=== PATIENT | male | born 1955 | race Caucasian/White ===

== ENCOUNTER 2016-11-30 14:23 | Emergency (ER) | payer OTHER ==
[~2016-11-30] VITALS: Ht 167.6 cm; Wt 82.0 kg
[~2016-11-30 14:23] MED LIST: Aspirin PO; CEPH-569 PO; DILT180C69 PO; GLIP5TAB73 PO; LISI2.5T89 PO; METF10002 PO; SIMV40TA5 PO
[2016-11-30] MEDS ORDERED: TAM75 PO (14:52)
[2016-11-30] MEDS ORDERED: ACETAMINOPHEN 325MG TABLET PO ONE (19:15)
[2016-11-30 19:39] LABS: BASOPHILS % 0.5 % (0.0-2.0); EOSINOPHILS % 0.8 % (0.0-5.0); HEMATOCRIT. 41.7 % (42.0-52.0); HEMOGLOBIN. 14.4 g/dL (14.0-18.0); LYMPHOCYTES % 15.2 % (20.0-50.0); MEAN CORPUSCULAR HEMOGLOBIN 30.9 pg (28.0-32.0); MEAN CORPUSCULAR HGB CONC 34.4 g/dL (31.0-37.0); MEAN CORPUSCULAR VOLUME 89.8 fL (80.0-94.0); MEAN PLATELET VOLUME 8.3 fl (7.4-10.4); MONOCYTES % 5.4 % (2.0-8.0); NEUTROPHILS % 78.1 % (40.0-76.0); PLATELET 200 x1000/uL (130-400); RED BLOOD CELL COUNT 4.64 mill/uL (4.7-6.1); RED CELL DISTRIBUTION WIDTH 13.8 % (11.6-14.6); WHITE BLOOD COUNT 15.6 x1000/uL (4.5-11.0)
[2016-11-30 19:44] LABS: CHLORIDE 106 mEq/L (98-107); INDEX HEMOLYSI 1 (1-3); INDEX ICTERIC 1 (1-4); INDEX LIPEMIC 1 (1-3)
[2016-11-30 19:47] LABS: ALBUMIN 3.5 g/dL (3.4-5.0); ANION GAP 15; CALCIUM 8.4 mg/dL (8.5-10.1); CARBON DIOXIDE 25 mEq/L (21-32); UREA NITROGEN BLOOD 11 mg/dL (7-21)
[2016-11-30 19:51] LABS: ALANINE AMINOTRANSFERASE 26 IU/L (13-61); eGFR > 60 mL/min (>60)
[2016-11-30 21:22] LABS: CLARITY URINE CLEAR (CLEAR); COLOR URINE YELLOW (YELLOW); GLUCOSE URINE NEGATIVE (NEGATIVE); KETONES URINE 1+ (NEGATIVE); LEUKOCYTE ESTERASE URINE NEGATIVE (NEGATIVE); NITRITE URINE NEGATIVE (NEGATIVE); OCCULT BLOOD URINE NEGATIVE (NEGATIVE); PH URINE 7.5 (4.5-8.0); PROTEIN URINE NEGATIVE (NEGATIVE)
[2016-11-30] MEDS ORDERED: KETOROLAC 60MG/2ML VIAL IM ONE (22:45)
[2016-12-01 01:34] VITALS: BP 161/84
== END 2016-12-01 01:51 | disposition home or self-care (01) ==
LOC: ER 14:23
DX: J06.9 Acute upper respiratory infection, unspecified (principal); E11.9 Type 2 diabetes mellitus without complications; I25.10 Atherosclerotic heart disease of native coronary artery without angina pectoris; I10 Essential (primary) hypertension; F17.210 Nicotine dependence, cigarettes, uncomplicated
CPT/HCPCS: 36415; 80053; 81003; 85025; 96372; 99284; J1885

== ENCOUNTER 2018-06-10 09:20 | Inpatient (IN) | payer OTHER ==
[~2018-06-10] VITALS: Ht 165.1 cm; Wt 73.0 kg
[~2018-06-10 09:20] MED LIST changes: +DILT180C66 PO; -DILT180C69 PO; +GLIP5TAB3 PO; -GLIP5TAB73 PO; +METF-416 PO; -METF10002 PO; +TAM75 PO
[2018-06-10] MEDS ORDERED: ONDANSETRON HCL 4MG/2ML INJ IV STA (10:25)
[2018-06-10] MEDS ORDERED: MORPHINE SULFATE 4 MG/ML CPJ (NOT FOR IM USE) IV STA (10:25)
[2018-06-10] MEDS ORDERED: CEFTRIAXONE 1 G PREMIX 50 ML IV ONE (10:30)
[2018-06-10] MEDS ORDERED: SODIUM CHLORIDE 0.9% 1000ML BAG (SEPSIS BOLUS) IV ONE (10:30)
[2018-06-10 11:00] LABS: BASOPHILS % 0.7 % (0.0-2.0); EOSINOPHILS % 0.6 % (0.0-5.0); HEMATOCRIT. 41.6 % (42.0-52.0); HEMOGLOBIN. 14.3 g/dL (14.0-18.0); LYMPHOCYTES % 19.9 % (20.0-50.0); MEAN CORPUSCULAR VOLUME 89.9 fL (80.0-94.0); MEAN PLATELET VOLUME 8.1 fl (7.4-10.4); MONOCYTES % 7.2 % (2.0-8.0); NEUTROPHILS % 71.6 % (40.0-76.0); PLATELET 233 x1000/uL (130-400); RED BLOOD CELL COUNT 4.63 mill/uL (4.7-6.1); RED CELL DISTRIBUTION WIDTH 14.7 % (11.6-14.6)
[2018-06-10 11:12] LABS: CLARITY URINE CLEAR (CLEAR); COLOR URINE YELLOW (YELLOW); KETONES URINE NEGATIVE (NEGATIVE); LEUKOCYTE ESTERASE URINE NEGATIVE (NEGATIVE); NITRITE URINE NEGATIVE (NEGATIVE); OCCULT BLOOD URINE NEGATIVE (NEGATIVE); PROTEIN URINE NEGATIVE (NEGATIVE); SPECIFIC GRAVITY URINE 1.004 (1.005-1.030); UROBILINOGEN URINE 0.2 E.U./dL (0.2-1.0)
[2018-06-10 11:15] LABS: CHLORIDE 107 mEq/L (98-107)
[2018-06-10 11:18] LABS: PROTHROMBIN TIME 10.4 sec (9.1-11.1)
[2018-06-10] MEDS ORDERED: TAMSULOSIN HCL 0.4MG SR CAPSULE PO ONE (12:30)
[2018-06-10] MEDS ORDERED: MORPHINE SULFATE 4 MG/ML CPJ (NOT FOR IM USE) IV PRN (14:00)
[2018-06-10] MEDS ORDERED: ONDANSETRON HCL 4MG/2ML INJ IV PRN (14:00)
[2018-06-10] MEDS ORDERED: CLONIDINE 0.1MG TABLET PO PRN (14:00)
[2018-06-10] MEDS ORDERED: DEXTROSE 50% WATER 50ML SYRINGE IV PRN (14:00)
[2018-06-10 14:15] VITALS: BP 130/67
[2018-06-10 14:41] VITALS: BP 130/67
[2018-06-10 16:00] VITALS: BP_SYST 112; BP_SYST 141; BP_DIAS 102; BP_DIAS 53
[2018-06-10] MEDS: BLOOD SUGAR DIAGNOSTIC STRIP TEST SCH ×2 (17:48→21:12)
[2018-06-10] MEDS: INSULIN LISPRO 100 UNITS/ML SUBCUT SCH ×2 (18:38→21:16)
[2018-06-10 20:00] VITALS: BP 118/53
[2018-06-10] MEDS: NICOTINE 14MG PATCH TD SCH (20:04)
[2018-06-10] MEDS: HYDROCODONE/ACETAMINOPHEN 5/325MG TABLET PO PRN (22:35)
[2018-06-11] VITALS: BP 114/64
[2018-06-11 04:00] VITALS: BP 131/70
[2018-06-11] MEDS: BLOOD SUGAR DIAGNOSTIC STRIP TEST SCH ×2 (06:21→13:01)
[2018-06-11] MEDS: INSULIN LISPRO 100 UNITS/ML SUBCUT SCH ×2 (06:23→12:40)
[2018-06-11 06:50] LABS: BASOPHILS % 0.5 % (0.0-2.0); EOSINOPHILS % 1.8 % (0.0-5.0); HEMATOCRIT. 37.4 % (42.0-52.0); HEMOGLOBIN. 12.9 g/dL (14.0-18.0); LYMPHOCYTES % 33.2 % (20.0-50.0); MEAN CORPUSCULAR HEMOGLOBIN 31.3 pg (28.0-32.0); MEAN CORPUSCULAR VOLUME 90.9 fL (80.0-94.0); MEAN PLATELET VOLUME 8.6 fl (7.4-10.4); MONOCYTES % 9.7 % (2.0-8.0); NEUTROPHILS % 54.8 % (40.0-76.0); PLATELET 210 x1000/uL (130-400); RED BLOOD CELL COUNT 4.11 mill/uL (4.7-6.1); RED CELL DISTRIBUTION WIDTH 14.7 % (11.6-14.6)
[2018-06-11 07:35] LABS: CHLORIDE 109 mEq/L (98-107)
[2018-06-11 08:00] VITALS: BP 148/75
[2018-06-11] MEDS: HYDROCODONE/ACETAMINOPHEN 5/325MG TABLET PO PRN ×2 (08:13→15:11)
[2018-06-11] MEDS: NICOTINE 14MG PATCH TD SCH (08:14)
[2018-06-11 12:00] VITALS: BP 146/70
[2018-06-11 15:43] VITALS: BP 139/71
[2018-06-11 16:00] VITALS: BP 135/72
== END 2018-06-11 17:30 | disposition home or self-care (01) | DRG 694 ==
LOC: ER 09:20 → 8WST 12:31 → EDBEDREQTM 12:34 → EDBEDREQ 12:34 → ENRESERV 13:03
PROVIDERS: ADMIT Internal Medicine; ATTEND Internal Medicine
DX: N20.0 Calculus of kidney (principal); E11.9 Type 2 diabetes mellitus without complications; I10 Essential (primary) hypertension; F17.200 Nicotine dependence, unspecified, uncomplicated; Z87.440 Personal history of urinary (tract) infections; Z79.82 Long term (current) use of aspirin; Z79.84 Long term (current) use of oral hypoglycemic drugs; Z79.899 Other long term (current) drug therapy; Z71.6 Tobacco abuse counseling
CPT/HCPCS: 36415; 71045; 74176; 80048; 82962; 83036; 83605; 83880; 84145; 84484; 93005; J0696; J1815; J2270; J2405; J7030

== ENCOUNTER 2018-07-09 16:31 | Inpatient (IN) | payer OTHER ==
[~2018-07-09] VITALS: Ht 162.6 cm; Wt 71.7 kg
[2018-07-09] MEDS ORDERED: KETOROLAC 30MG/ML VIAL IV STA (19:03)
[2018-07-09] MEDS ORDERED: MORPHINE SULFATE 4 MG/ML CPJ (NOT FOR IM USE) IV STA (19:03)
[2018-07-09] MEDS ORDERED: ONDANSETRON HCL 4MG/2ML INJ IV STA (19:03)
[2018-07-09] MEDS ORDERED: SODIUM CHLORIDE 0.9% 1,000 ML IV ONE (19:03)
[2018-07-09 20:15] LABS: BASOPHILS % 0.5 % (0.0-2.0); EOSINOPHILS % 0.9 % (0.0-5.0); HEMATOCRIT. 39.8 % (42.0-52.0); HEMOGLOBIN. 13.6 g/dL (14.0-18.0); LYMPHOCYTES % 20.2 % (20.0-50.0); MEAN CORPUSCULAR HEMOGLOBIN 30.9 pg (28.0-32.0); MEAN CORPUSCULAR VOLUME 90.6 fL (80.0-94.0); MONOCYTES % 8.3 % (2.0-8.0); NEUTROPHILS % 70.1 % (40.0-76.0); PLATELET 191 x1000/uL (130-400); RED CELL DISTRIBUTION WIDTH 13.8 % (11.6-14.6)
[2018-07-09 20:21] LABS: CHLORIDE 103 mEq/L (98-107)
[2018-07-09 20:23] LABS: INR 1.1; PARTIAL THROMBOPLASTIN TIME 30.4 sec (23.4-31.0); PROTHROMBIN TIME 10.6 sec (9.1-11.1)
[2018-07-09 20:25] LABS: ETHANOL BLOOD < 10 mg/dL
[2018-07-09] MEDS ORDERED: CEFTRIAXONE 1 G PREMIX 50 ML IV ONE (23:15)
[2018-07-09 23:52] LABS: CLARITY URINE CLEAR (CLEAR); COLOR URINE YELLOW (YELLOW); KETONES URINE NEGATIVE (NEGATIVE); LEUKOCYTE ESTERASE URINE NEGATIVE (NEGATIVE); NITRITE URINE NEGATIVE (NEGATIVE); OCCULT BLOOD URINE NEGATIVE (NEGATIVE); PH URINE 5.5 (4.5-8.0); PROTEIN URINE NEGATIVE (NEGATIVE); SPECIFIC GRAVITY URINE 1.006 (1.005-1.030); UROBILINOGEN URINE 0.2 E.U./dL (0.2-1.0)
[2018-07-10 00:10] LABS: *AMPHETAMINES SCREEN URINE NEGATIVE (NEGATIVE); *BARBITURATES SCREEN URINE NEGATIVE (NEGATIVE); *BENZODIAZEPINES SCREEN URINE NEGATIVE (NEGATIVE); *COCAINE SCREEN URINE NEGATIVE (NEGATIVE)
[2018-07-10 00:11] LABS: CANNABINOID URINE SCREEN NEGATIVE (NEGATIVE); METHADONE URINE SCREEN NEGATIVE (NEGATIVE); OPIATES URINE SCREEN NEGATIVE (NEGATIVE); PHENCYCLIDINE URINE SCREEN NEGATIVE (NEGATIVE)
[2018-07-10] MEDS ORDERED: ACETAMINOPHEN 325MG TABLET PO ONE (02:45)
[2018-07-10 04:00] VITALS: BP_SYST 136; BP_SYST 140; BP_DIAS 71; BP_DIAS 79
[2018-07-10] MEDS ORDERED: MAGNESIUM/ALUMINUM HYDROXIDE/SIMETHICONE 30ML UDC PO PRN (07:15)
[2018-07-10] MEDS ORDERED: ONDANSETRON HCL 4MG/2ML INJ IV PRN (07:15)
[2018-07-10] MEDS ORDERED: IPRATROPIUM/ALBUTEROL 0.5-3(2.5)MG/3ML NEB INH PRN (07:15)
[2018-07-10] MEDS ORDERED: CEFTRIAXONE 1 G PREMIX 50 ML IV SCH (07:15)
[2018-07-10] MEDS ORDERED: CLONIDINE 0.1MG TABLET PO PRN (07:15)
[2018-07-10] MEDS ORDERED: CEFTRIAXONE XX SCH (07:30)
[2018-07-10 08:00] VITALS: BP_SYST 156; BP_SYST 158; BP_DIAS 75
[2018-07-10] MEDS ORDERED: DOCUSATE SODIUM 100MG CAPSULE PO PRN (09:00)
[2018-07-10] MEDS: ACETAMINOPHEN 325MG TABLET PO PRN ×2 (09:36→17:56)
[2018-07-10] MEDS: SODIUM CHLORIDE 0.9% 1,000 ML IV SCH ×2 (10:19→20:12)
[2018-07-10 12:00] VITALS: BP 139/76
[2018-07-10 16:00] VITALS: BP 122/69
[2018-07-10 20:00] VITALS: BP 126/66
[2018-07-10] MEDS: CEFTRIAXONE 1 G PREMIX 50 ML IV SCH (22:29)
[2018-07-10] MEDS: KETOROLAC 30MG/ML VIAL IV PRN (23:43)
[2018-07-11] VITALS: BP 128/76
[2018-07-11 04:00] VITALS: BP 133/67
[2018-07-11] MEDS: HYDROCODONE/ACETAMINOPHEN 5/325MG TABLET PO PRN ×2 (04:30→23:09)
[2018-07-11 06:22] LABS: BASOPHILS % 0.9 % (0.0-2.0); EOSINOPHILS % 2.2 % (0.0-5.0); HEMATOCRIT. 36.2 % (42.0-52.0); HEMOGLOBIN. 12.5 g/dL (14.0-18.0); LYMPHOCYTES % 31.6 % (20.0-50.0); MEAN CORPUSCULAR HEMOGLOBIN 31.4 pg (28.0-32.0); MEAN CORPUSCULAR VOLUME 90.7 fL (80.0-94.0); MEAN PLATELET VOLUME 9.2 fl (7.4-10.4); MONOCYTES % 10.1 % (2.0-8.0); NEUTROPHILS % 55.2 % (40.0-76.0); PLATELET 178 x1000/uL (130-400); RED BLOOD CELL COUNT 3.99 mill/uL (4.7-6.1); RED CELL DISTRIBUTION WIDTH 13.4 % (11.6-14.6)
[2018-07-11 06:48] LABS: CHLORIDE 109 mEq/L (98-107)
[2018-07-11 07:20] LABS: HDL CHOLESTEROL 33 mg/dL (40-59)
[2018-07-11 07:24] LABS: LDL CHOLESTEROL 64 mg/dL (5-100)
[2018-07-11 07:25] LABS: T4 FREE 1.07 ng/dL (0.76-1.46)
[2018-07-11] MEDS ORDERED: DEXTROSE 50% WATER 50ML SYRINGE IV PRN (07:30)
[2018-07-11] MEDS: INSULIN LISPRO 100 UNITS/ML SUBCUT SCH ×4 (07:50→21:00)
[2018-07-11 08:00] VITALS: BP 145/71
[2018-07-11 12:00] VITALS: BP 154/72
[2018-07-11] MEDS: BLOOD SUGAR DIAGNOSTIC STRIP TEST SCH ×3 (12:38→20:56)
[2018-07-11 16:00] VITALS: BP 161/71
[2018-07-11] MEDS: SODIUM CHLORIDE 0.9% 1,000 ML IV SCH (18:23)
[2018-07-11 20:00] VITALS: BP 155/73
[2018-07-11] MEDS: CEFTRIAXONE 1 G PREMIX 50 ML IV SCH (23:11)
[2018-07-12] VITALS: BP 136/77
[2018-07-12 04:00] VITALS: BP 128/74
[2018-07-12] MEDS: BLOOD SUGAR DIAGNOSTIC STRIP TEST SCH ×3 (07:20→16:46)
[2018-07-12] MEDS: INSULIN LISPRO 100 UNITS/ML SUBCUT SCH ×3 (07:50→16:47)
[2018-07-12 08:00] VITALS: BP 145/79
[2018-07-12] MEDS ORDERED: LISINOPRIL 2.5MG TABLET PO SCH (09:00)
[2018-07-12] MEDS ORDERED: DILTIAZEM HCL 180MG CAPSULE CD 24HR PO SCH (09:00)
[2018-07-12] MEDS: SODIUM CHLORIDE 0.9% 1,000 ML IV SCH ×2 (09:09→12:29)
[2018-07-12] MEDS: HYDROCODONE/ACETAMINOPHEN 5/325MG TABLET PO PRN (11:37)
[2018-07-12 12:00] VITALS: BP 152/84
[2018-07-12 16:00] VITALS: BP 146/86
[2018-07-12] MEDS: KETOROLAC 30MG/ML VIAL IV PRN (16:48)
[2018-07-12 18:38] VITALS: BP 152/84
== END 2018-07-12 19:30 | disposition home or self-care (01) | DRG 694 ==
LOC: ER 16:31 → 6EST 07-10 00:49 → EDBEDREQ 07-10 00:52 → EDBEDREQTM 07-10 00:52 → EDBEDREQDT 07-10 00:52 → ENRESERV 07-10 02:24
PROVIDERS: ADMIT Internal Medicine; ATTEND Internal Medicine
DX: N20.0 Calculus of kidney (principal); I10 Essential (primary) hypertension; E11.9 Type 2 diabetes mellitus without complications; B95.1 Streptococcus, group B, as the cause of diseases classified elsewhere; M19.90 Unspecified osteoarthritis, unspecified site; K44.9 Diaphragmatic hernia without obstruction or gangrene; F17.210 Nicotine dependence, cigarettes, uncomplicated; Z79.84 Long term (current) use of oral hypoglycemic drugs; Z79.899 Other long term (current) drug therapy; Z79.82 Long term (current) use of aspirin
CPT/HCPCS: 36415; 74176; 80061; 80305; 82962; 83605; 83880; 84439; 84443; 84481; 84484; 96365; 96366; 96375; 99285; G0482; J0696; J1815; J1885; J2270; J2405; J7030

== ENCOUNTER 2018-11-12 08:38 | Emergency (ER) | payer OTHER ==
[~2018-11-12] VITALS: Ht 167.6 cm; Wt 73.0 kg
[~2018-11-12 08:38] MED LIST changes: -CEPH-569 PO; -TAM75 PO
[2018-11-12 09:59] LABS: CLARITY URINE CLEAR (CLEAR); COLOR URINE YELLOW (YELLOW); KETONES URINE NEGATIVE (NEGATIVE); LEUKOCYTE ESTERASE URINE TRACE (NEGATIVE); NITRITE URINE NEGATIVE (NEGATIVE); OCCULT BLOOD URINE TRACE (NEGATIVE); PROTEIN URINE NEGATIVE (NEGATIVE); SPECIFIC GRAVITY URINE 1.019 (1.005-1.030)
[2018-11-12] MEDS ORDERED: SODIUM CHLORIDE 0.9% 1,000 ML IV ONE (10:27)
[2018-11-12] MEDS ORDERED: CEFTRIAXONE 1 G PREMIX 50 ML IV ONE (10:30)
[2018-11-12] MEDS ORDERED: ACETAMINOPHEN 325MG TABLET PO ONE (10:30)
[2018-11-12 12:15] LABS: CHLORIDE 105 mEq/L (98-107)
[2018-11-12 12:18] LABS: HEMATOCRIT. 39.7 % (42.0-52.0); HEMOGLOBIN. 13.3 g/dL (14.0-18.0); MEAN CORPUSCULAR HEMOGLOBIN 29.7 pg (28.0-32.0); MEAN CORPUSCULAR VOLUME 88.4 fL (80.0-94.0); MEAN PLATELET VOLUME 9.2 fl (7.4-10.4); PLATELET 186 x1000/uL (130-400); RED BLOOD CELL COUNT 4.48 mill/uL (4.7-6.1); RED CELL DISTRIBUTION WIDTH 14.7 % (11.6-14.6)
[2018-11-12 13:08] LABS: PLATELET ESTIMATE NORMAL
[2018-11-12 13:57] VITALS: BP 148/79
== END 2018-11-12 14:00 | disposition home or self-care (01) ==
LOC: ER 08:38
DX: N39.0 Urinary tract infection, site not specified (principal); D72.829 Elevated white blood cell count, unspecified; E11.9 Type 2 diabetes mellitus without complications; E78.00 Pure hypercholesterolemia, unspecified; I10 Essential (primary) hypertension; Z87.442 Personal history of urinary calculi; Z79.82 Long term (current) use of aspirin; Z79.84 Long term (current) use of oral hypoglycemic drugs; Z79.899 Other long term (current) drug therapy
CPT/HCPCS: 36415; 71045; 80053; 81003; 85025; 87086; 93005; 96365; 99284; J7030; Z7610

== ENCOUNTER 2022-11-08 19:11 | Inpatient (IN) | payer MEDICARE, OTHER ==
[~2022-11-08] VITALS: Ht 162.6 cm; Wt 81.2 kg
[~2022-11-08 19:11] MED LIST changes: +SIMV-46 PO; -SIMV40TA5 PO
[2022-11-08] MEDS ORDERED: KETOROLAC 30MG/ML VIAL IV STA (20:22)
[2022-11-08] MEDS ORDERED: ONDANSETRON HCL 4MG/2ML INJ IV ONE (20:30)
[2022-11-08 21:57] LABS: HEMATOCRIT. 34.7 % (42.0-52.0); HEMOGLOBIN. 11.2 g/dL (14.0-18.0); MEAN CORPUSCULAR HEMOGLOBIN 26.7 pg (28.0-32.0); MEAN CORPUSCULAR VOLUME 82.9 fL (80.0-94.0); MEAN PLATELET VOLUME 9.2 fl (7.4-10.4); PLATELET 270 x1000/uL (130-400); RED BLOOD CELL COUNT 4.19 mill/uL (4.7-6.1); RED CELL DISTRIBUTION WIDTH 15.9 % (11.6-14.6)
[2022-11-08 22:04] LABS: CHLORIDE 105 mEq/L (98-107)
[2022-11-08 22:05] LABS: PROTHROMBIN TIME 10.5 sec (9.6-11.0)
[2022-11-08 22:48] LABS: PLATELET ESTIMATE NORMAL
[2022-11-09] MEDS ORDERED: CLONIDINE 0.1MG TABLET PO PRN (03:45)
[2022-11-09] MEDS ORDERED: DIPHENHYDRAMINE 50MG/ML VIAL IV PRN (03:45)
[2022-11-09] MEDS ORDERED: MAGNESIUM/ALUMINUM HYDROXIDE/SIMETHICONE 30ML UDC PO PRN (03:45)
[2022-11-09] MEDS: SODIUM CHLORIDE 0.9% 1,000 ML IV SCH ×3 (03:45→20:00)
[2022-11-09] MEDS ORDERED: ACETAMINOPHEN 325MG TABLET PO PRN (03:45)
[2022-11-09] MEDS ORDERED: DEXTROSE 50% WATER 50ML SYRINGE IV PRN (03:45)
[2022-11-09] MEDS ORDERED: LEVOFLOXACIN 500MG PREMIX 100 ML IV SCH (06:00)
[2022-11-09 09:30] VITALS: BP 117/54
[2022-11-09] MEDS: TAMSULOSIN HCL 0.4MG SR CAPSULE PO SCH (10:54)
[2022-11-09] MEDS: DILTIAZEM HCL 180MG CAPSULE CD 24HR PO SCH (10:56)
[2022-11-09 12:00] VITALS: BP 136/54
[2022-11-09] MEDS: LEVOFLOXACIN 500MG PREMIX 100 ML IV SCH (12:48)
[2022-11-09] MEDS: BLOOD SUGAR DIAGNOSTIC STRIP TEST SCH ×3 (13:01→21:03)
[2022-11-09] MEDS: ONDANSETRON HCL 4MG/2ML INJ IV PRN (13:14)
[2022-11-09] MEDS: INSULIN LISPRO 100 UNITS/ML SUBCUT SCH ×3 (13:19→21:00)
[2022-11-09] MEDS: ACETAMINOPHEN 325MG TABLET PO PRN ×3 (14:04→22:28)
[2022-11-09] MEDS ORDERED: KETOROLAC 15MG/ML VIAL IV PRN (15:45)
[2022-11-09 16:00] VITALS: BP_SYST 112; BP_SYST 136; BP_DIAS 48; BP_DIAS 54
[2022-11-09 17:42] LABS: CLARITY URINE TURBID (CLEAR); COLOR URINE YELLOW (YELLOW); KETONES URINE NEGATIVE (NEGATIVE); LEUKOCYTE ESTERASE URINE 3+ (NEGATIVE); NITRITE URINE NEGATIVE (NEGATIVE); OCCULT BLOOD URINE 2+ (NEGATIVE); PROTEIN URINE 3+ (NEGATIVE); SPECIFIC GRAVITY URINE 1.019 (1.005-1.030)
[2022-11-09] MEDS: ATORVASTATIN CALCIUM 20MG TABLET PO SCH (21:00)
[2022-11-10] MEDS: SODIUM CHLORIDE 0.9% 1,000 ML IV SCH ×2 (01:43→16:59)
[2022-11-10] MEDS: ONDANSETRON HCL 4MG/2ML INJ IV PRN (03:44)
[2022-11-10] MEDS ORDERED: DIPHENHYDRAMINE 50MG/ML VIAL IV NR (05:00)
[2022-11-10] MEDS ORDERED: PIPERACILLIN/TAZOBACTAM 3.375GM/50ML PREMIX IV ONE (05:30)
[2022-11-10] MEDS: PIPERACILLIN/TAZOBACTAM 3.375G in DEXT 5% WATER 50ML IV SCH ×3 (05:42→21:44)
[2022-11-10 06:57] LABS: HEMATOCRIT. 29.9 % (42.0-52.0); HEMOGLOBIN. 9.8 g/dL (14.0-18.0); MEAN CORPUSCULAR HEMOGLOBIN 27.3 pg (28.0-32.0); MEAN CORPUSCULAR VOLUME 83.3 fL (80.0-94.0); PLATELET 142 x1000/uL (130-400); RED BLOOD CELL COUNT 3.59 mill/uL (4.7-6.1)
[2022-11-10] MEDS: BLOOD SUGAR DIAGNOSTIC STRIP TEST SCH ×4 (07:13→21:44)
[2022-11-10] MEDS: TAMSULOSIN HCL 0.4MG SR CAPSULE PO SCH (08:16)
[2022-11-10] MEDS: DILTIAZEM HCL 180MG CAPSULE CD 24HR PO SCH (08:16)
[2022-11-10] MEDS: METFORMIN HCL 500MG TABLET PO SCH ×2 (08:17→16:59)
[2022-11-10] MEDS: ACETAMINOPHEN 325MG TABLET PO PRN ×2 (09:08→12:57)
[2022-11-10] MEDS: GLIPIZIDE XL 2.5MG TABLET PO SCH ×2 (09:10→09:14)
[2022-11-10] MEDS: INSULIN LISPRO 100 UNITS/ML SUBCUT SCH ×4 (09:11→21:00)
[2022-11-10 10:00] VITALS: BP 124/64
[2022-11-10] MEDS ORDERED: PIPERACILLIN/TAZOBACTAM 3.375 G in DEXTROSE 5% WATER 50 ML IV SCH (10:00)
[2022-11-10] MEDS: LEVOFLOXACIN 500MG PREMIX 100 ML IV SCH (11:31)
[2022-11-10 12:00] VITALS: BP 100/56
[2022-11-10 14:23] LABS: PLATELET ESTIMATE NORMAL
[2022-11-10 16:00] VITALS: BP 110/71
[2022-11-10 20:00] VITALS: BP 104/51
[2022-11-10 20:44] VITALS: BP 104/51
[2022-11-10] MEDS: ATORVASTATIN CALCIUM 20MG TABLET PO SCH (21:44)
[2022-11-11] VITALS (7 sets, daily range): BP systolic 122–143; BP diastolic 45–72
[2022-11-11] MEDS: ONDANSETRON HCL 4MG/2ML INJ IV PRN ×2 (00:22→18:57)
[2022-11-11] MEDS: ACETAMINOPHEN 325MG TABLET PO PRN (05:09)
[2022-11-11] MEDS: PIPERACILLIN/TAZOBACTAM 3.375G in DEXT 5% WATER 50ML IV SCH ×3 (05:38→21:45)
[2022-11-11] MEDS: BLOOD SUGAR DIAGNOSTIC STRIP TEST SCH ×4 (06:46→21:46)
[2022-11-11] MEDS: METRONIDAZOLE 500MG TABLET PO SCH ×3 (06:52→21:46)
[2022-11-11] MEDS: GLIPIZIDE XL 2.5MG TABLET PO SCH (06:59)
[2022-11-11] MEDS: METFORMIN HCL 500MG TABLET PO SCH (06:59)
[2022-11-11] MEDS: INSULIN LISPRO 100 UNITS/ML SUBCUT SCH ×4 (07:01→21:00)
[2022-11-11 09:08] LABS: HEMATOCRIT. 29.7 % (42.0-52.0); HEMOGLOBIN. 9.7 g/dL (14.0-18.0); MEAN CORPUSCULAR HEMOGLOBIN 27.1 pg (28.0-32.0); MEAN CORPUSCULAR VOLUME 82.9 fL (80.0-94.0); MEAN PLATELET VOLUME 9.3 fl (7.4-10.4); PLATELET 131 x1000/uL (130-400); RED BLOOD CELL COUNT 3.59 mill/uL (4.7-6.1); RED CELL DISTRIBUTION WIDTH 16.4 % (11.6-14.6)
[2022-11-11] MEDS: DILTIAZEM HCL 180MG CAPSULE CD 24HR PO SCH (09:11)
[2022-11-11] MEDS: TAMSULOSIN HCL 0.4MG SR CAPSULE PO SCH (09:12)
[2022-11-11] MEDS: SODIUM CHLORIDE 0.9% 1,000 ML IV SCH ×2 (09:13→20:06)
[2022-11-11 10:04] LABS: NUCLEATED RED BLOOD CELLS 1 /100 WBC
[2022-11-11 10:05] LABS: PLATELET ESTIMATE NORMAL
[2022-11-11] MEDS ORDERED: NALOXONE HCL 0.4MG/ML VIAL IV PRN (12:30)
[2022-11-11] MEDS ORDERED: BLOOD SUGAR DIAGNOSTIC STRIP TEST SCH (16:40)
[2022-11-11] MEDS ORDERED: INSULIN LISPRO 100 UNITS/ML SUBCUT SCH (17:10)
[2022-11-11] MEDS: HYDROCODONE/ACETAMINOPHEN 5/325MG TABLET PO PRN (18:57)
[2022-11-11] MEDS: ATORVASTATIN CALCIUM 20MG TABLET PO SCH (21:46)
[2022-11-12] VITALS: BP 133/62
[2022-11-12 04:00] VITALS: BP 117/60
[2022-11-12] MEDS: SODIUM CHLORIDE 0.9% 1,000 ML IV SCH ×3 (04:06→20:01)
[2022-11-12] MEDS: ONDANSETRON HCL 4MG/2ML INJ IV PRN (04:20)
[2022-11-12] MEDS: METRONIDAZOLE 500MG TABLET PO SCH (06:29)
[2022-11-12] MEDS: INSULIN LISPRO 100 UNITS/ML SUBCUT SCH ×4 (06:29→20:41)
[2022-11-12] MEDS: BLOOD SUGAR DIAGNOSTIC STRIP TEST SCH ×4 (06:29→20:31)
[2022-11-12] MEDS: PIPERACILLIN/TAZOBACTAM 3.375G in DEXT 5% WATER 50ML IV SCH (06:58)
[2022-11-12 08:00] VITALS: BP 144/71
[2022-11-12] MEDS: DILTIAZEM HCL 180MG CAPSULE CD 24HR PO SCH (08:05)
[2022-11-12] MEDS: TAMSULOSIN HCL 0.4MG SR CAPSULE PO SCH (08:06)
[2022-11-12] MEDS ORDERED: LIDOCAINE HCL 1% 10 MG/ML 10ML VIAL ONE (10:33)
[2022-11-12] MEDS ORDERED: ONDANSETRON HCL 4MG/2ML INJ ONE (10:33)
[2022-11-12] MEDS ORDERED: DEXAMETHASONE 4MG/ML 1ML VIAL ONE (10:33)
[2022-11-12] MEDS ORDERED: PROPOFOL 200MG/20ML VIAL IV ONE (10:34)
[2022-11-12] MEDS ORDERED: FENTANYL CITRATE/PF 50MCG/ML 2ML VIAL ONE (10:34)
[2022-11-12] MEDS ORDERED: MIDAZOLAM HCL 2 MG/2 ML VIAL ONE (10:34)
[2022-11-12] MEDS ORDERED: IOPAMIDOL 10 ML VIAL IT ONE (10:59)
[2022-11-12 12:30] VITALS: BP 143/66
[2022-11-12] MEDS: MEROPENEM 1,000 MG in SODIUM CHLORIDE 0.9% 100 ML IV SCH (13:54)
[2022-11-12 16:00] VITALS: BP 132/61
[2022-11-12] MEDS: HYDROCODONE/ACETAMINOPHEN 5/325MG TABLET PO PRN ×2 (18:07→22:28)
[2022-11-12 20:00] VITALS: BP 119/58
[2022-11-12] MEDS: ATORVASTATIN CALCIUM 20MG TABLET PO SCH (20:38)
[2022-11-13] VITALS: BP 123/49
[2022-11-13] MEDS: MEROPENEM 1,000 MG in SODIUM CHLORIDE 0.9% 100 ML IV SCH ×2 (00:22→13:17)
[2022-11-13 01:10] LABS: BASOPHILS % 0.1 % (0.0-2.0); HEMATOCRIT. 30.1 % (42.0-52.0); HEMOGLOBIN. 9.9 g/dL (14.0-18.0); LYMPHOCYTES % 3.6 % (20.0-50.0); MEAN CORPUSCULAR HEMOGLOBIN 26.9 pg (28.0-32.0); MEAN PLATELET VOLUME 9.2 fl (7.4-10.4); MONOCYTES % 4.7 % (2.0-8.0); NEUTROPHILS % 91.6 % (40.0-76.0); PLATELET 143 x1000/uL (130-400); RED BLOOD CELL COUNT 3.68 mill/uL (4.7-6.1); RED CELL DISTRIBUTION WIDTH 16.7 % (11.6-14.6)
[2022-11-13] MEDS: SODIUM CHLORIDE 0.9% 1,000 ML IV SCH ×3 (03:25→20:46)
[2022-11-13 04:00] VITALS: BP 150/67
[2022-11-13] MEDS: BLOOD SUGAR DIAGNOSTIC STRIP TEST SCH ×4 (05:51→20:46)
[2022-11-13] MEDS: INSULIN LISPRO 100 UNITS/ML SUBCUT SCH ×4 (06:10→20:46)
[2022-11-13] MEDS: HYDROCODONE/ACETAMINOPHEN 5/325MG TABLET PO PRN (06:10)
[2022-11-13 06:15] LABS: HEMATOCRIT. 31.9 % (42.0-52.0); HEMOGLOBIN. 10.5 g/dL (14.0-18.0); MEAN CORPUSCULAR VOLUME 82.1 fL (80.0-94.0); MEAN PLATELET VOLUME 9.4 fl (7.4-10.4); PLATELET 147 x1000/uL (130-400); RED BLOOD CELL COUNT 3.89 mill/uL (4.7-6.1); RED CELL DISTRIBUTION WIDTH 16.8 % (11.6-14.6)
[2022-11-13 08:00] VITALS: BP 145/69
[2022-11-13 08:27] LABS: CHLORIDE 110 mEq/L (98-107)
[2022-11-13] MEDS ORDERED: LIDOCAINE HCL 1% 30ML VIAL (10MG/ML) ONE (09:08)
[2022-11-13] MEDS: TAMSULOSIN HCL 0.4MG SR CAPSULE PO SCH (09:24)
[2022-11-13] MEDS: DILTIAZEM HCL 180MG CAPSULE CD 24HR PO SCH (10:17)
[2022-11-13 12:00] VITALS: BP 134/61
[2022-11-13 12:41] LABS: PLATELET ESTIMATE NORMAL
[2022-11-13 16:00] VITALS: BP 144/62
[2022-11-13] MEDS: ACETAMINOPHEN 325MG TABLET PO PRN (19:56)
[2022-11-13 20:00] VITALS: BP 145/61
[2022-11-13] MEDS: ATORVASTATIN CALCIUM 20MG TABLET PO SCH (20:45)
[2022-11-14] VITALS: BP 146/69
[2022-11-14] MEDS ORDERED: MEROPENEM-0.9% SODIUM CHLORIDE 50 ML IV SCH (01:00)
[2022-11-14] MEDS: ACETAMINOPHEN 325MG TABLET PO PRN ×2 (02:43→16:17)
[2022-11-14 04:00] VITALS: BP 149/74
[2022-11-14] MEDS: BLOOD SUGAR DIAGNOSTIC STRIP TEST SCH ×4 (05:52→20:44)
[2022-11-14] MEDS: INSULIN LISPRO 100 UNITS/ML SUBCUT SCH ×4 (05:52→20:44)
[2022-11-14] MEDS: SODIUM CHLORIDE 0.9% 1,000 ML IV SCH ×3 (05:53→23:32)
[2022-11-14] MEDS: HYDROCODONE/ACETAMINOPHEN 5/325MG TABLET PO PRN ×3 (06:02→20:59)
[2022-11-14 08:00] VITALS: BP 153/73
[2022-11-14] MEDS: DILTIAZEM HCL 180MG CAPSULE CD 24HR PO SCH (08:57)
[2022-11-14] MEDS: TAMSULOSIN HCL 0.4MG SR CAPSULE PO SCH (08:57)
[2022-11-14 10:37] LABS: HEMATOCRIT. 30.6 % (42.0-52.0); MEAN CORPUSCULAR HEMOGLOBIN 27.2 pg (28.0-32.0); MEAN CORPUSCULAR VOLUME 83.2 fL (80.0-94.0); MEAN PLATELET VOLUME 9.3 fl (7.4-10.4); PLATELET 142 x1000/uL (130-400); RED BLOOD CELL COUNT 3.68 mill/uL (4.7-6.1)
[2022-11-14 11:06] LABS: CHLORIDE 113 mEq/L (98-107)
[2022-11-14 11:10] LABS: PLATELET ESTIMATE NORMAL
[2022-11-14 12:00] VITALS: BP 162/69
[2022-11-14] MEDS: MEROPENEM-0.9% SODIUM CHLORIDE 50 ML IV SCH ×2 (13:24→21:14)
[2022-11-14 16:00] VITALS: BP 153/68
[2022-11-14 20:00] VITALS: BP 149/73
[2022-11-14] MEDS: ATORVASTATIN CALCIUM 20MG TABLET PO SCH (20:42)
[2022-11-14] MEDS: INSULIN GLARGINE 100 UNITS/ML SUBCUT SCH (23:33)
[2022-11-15] VITALS: BP 149/62
[2022-11-15 04:00] VITALS: BP 167/71
[2022-11-15] MEDS: MEROPENEM-0.9% SODIUM CHLORIDE 50 ML IV SCH ×2 (05:11→14:44)
[2022-11-15] MEDS: BLOOD SUGAR DIAGNOSTIC STRIP TEST SCH ×3 (05:46→16:34)
[2022-11-15] MEDS: INSULIN LISPRO 100 UNITS/ML SUBCUT SCH ×3 (05:46→18:07)
[2022-11-15 08:00] VITALS: BP 154/63
[2022-11-15] MEDS: DILTIAZEM HCL 180MG CAPSULE CD 24HR PO SCH (08:54)
[2022-11-15] MEDS: TAMSULOSIN HCL 0.4MG SR CAPSULE PO SCH (08:54)
[2022-11-15 12:00] VITALS: BP 150/70
[2022-11-15] MEDS: SODIUM CHLORIDE 0.9% 1,000 ML IV SCH (12:06)
[2022-11-15] MEDS: ACETAMINOPHEN 325MG TABLET PO PRN (12:23)
[2022-11-15] MEDS: INSULIN GLARGINE 100 UNITS/ML SUBCUT SCH (12:33)
[2022-11-15 14:42] VITALS: BP 145/70
[2022-11-15 16:00] VITALS: BP 132/63
== END 2022-11-15 17:30 | disposition home or self-care (01) | DRG 854 ==
LOC: ER 19:11 → MICUSO 11-09 01:43 → 6EST 11-09 09:00 → 7EST 11-10 08:44
PROVIDERS: ADMIT Internal Medicine; ATTEND Internal Medicine
PROC: 0T768DZ Dilation of Right Ureter with Intraluminal Device, Via Natural or Artificial Opening Endoscopic (ICD-10-PCS; principal; 2022-11-12)
PROC: BT1D1ZZ Fluoroscopy of Right Kidney, Ureter and Bladder using Low Osmolar Contrast (ICD-10-PCS; 2022-11-12)
PROC: 02H633Z Insertion of Infusion Device into Right Atrium, Percutaneous Approach (ICD-10-PCS; 2022-11-13)
PROC: B548ZZA Ultrasonography of Superior Vena Cava, Guidance (ICD-10-PCS; 2022-11-13)
DX: A41.51 Sepsis due to Escherichia coli [E. coli] (principal); E44.1 Mild protein-calorie malnutrition; N13.6 Pyonephrosis; N39.0 Urinary tract infection, site not specified; N17.9 Acute kidney failure, unspecified; Z16.12 Extended spectrum beta lactamase (ESBL) resistance; E11.9 Type 2 diabetes mellitus without complications; D64.9 Anemia, unspecified; I11.0 Hypertensive heart disease with heart failure; I50.9 Heart failure, unspecified; E78.00 Pure hypercholesterolemia, unspecified; Z20.822 Contact with and (suspected) exposure to COVID-19; Z72.0 Tobacco use; Z87.442 Personal history of urinary calculi
CPT/HCPCS: 36415; 36573; 71045; 74176; 80048; 80053; 81003; 82550; 82962; 83036; 84145; 84484; 85025; 87077; 87186; 87426; 93005; 93306; 99285; C1725; C2617; J1100; J1200; J1815; J1885; J1956; J2185; J2250; J2405; J2543; J2704; J3010; J3490; J7030; J7050; J7060; Q9966

== ENCOUNTER 2024-09-17 13:05 | Emergency (ER) | payer MEDICARE ==
[~2024-09-17] VITALS: Ht 165.1 cm; Wt 81.6 kg
[2024-09-17 13:24] VITALS: O2SAT 100
[2024-09-17 13:52] LABS: CHLORIDE 107 mEq/L (98-107); POTASSIUM 4.5 mEq/L (3.5-5.1); SODIUM 137 mEq/L (136-145)
[2024-09-17 13:53] LABS: CALCIUM 8.9 mg/dL (8.7-10.4); CARBON DIOXIDE 22 mEq/L (21-32)
[2024-09-17 13:58] LABS: BASOPHILS % 0.8 % (0.0-2.0); CREATININE 1.4 mg/dL (0.6-1.3); DIFFERENTIAL COMMENT 0; EOSINOPHILS % 1.4 % (0.0-5.0); GLUCOSE 229 mg/dL (70-105); HEMATOCRIT. 34.1 % (42.0-52.0); HEMOGLOBIN. 10.9 g/dL (14.0-18.0); LYMPHOCYTES % 17.8 % (20.0-50.0); MEAN CORPUSCULAR HEMOGLOBIN 23.3 pg (28.0-32.0); MEAN CORPUSCULAR HGB CONC 31.8 g/dL (31.0-37.0); MEAN CORPUSCULAR VOLUME 73.3 fL (80.0-94.0); MEAN PLATELET VOLUME 8.4 fl (7.4-10.4); MONOCYTES % 9.3 % (2.0-8.0); NEUTROPHILS % 70.7 % (40.0-76.0); PLATELET 246 x1000/uL (130-400); RED BLOOD CELL COUNT 4.66 mill/uL (4.7-6.1); RED CELL DISTRIBUTION WIDTH 19.3 % (11.6-14.6); UREA NITROGEN BLOOD 11 mg/dL (9-23)
[2024-09-17 14:00] LABS: ALANINE AMINOTRANSFERASE 16 IU/L (10-49); ALBUMIN 4.4 g/dL (3.2-4.8); ASPARTATE AMINOTRANSFERASE 18 IU/L (<34); BILIRUBIN TOTAL 0.3 mg/dL (0.1-1.0); PROTEIN TOTAL 7.2 g/dL (6.0-8.3)
[2024-09-17] MEDS ORDERED: BENZ100C86 MT (19:13)
[2024-09-17] MEDS ORDERED: ACET-2708 MT (19:13)
[2024-09-17 19:27] VITALS: BP 158/75; PULSE 90; RESP 19; TEMP 37.00296; O2SAT 97
[2024-09-17 19:54] LABS: CLARITY URINE CLOUDY (CLEAR); COLOR URINE YELLOW (YELLOW); GLUCOSE URINE 2+ (NEGATIVE); KETONES URINE NEGATIVE (NEGATIVE); LEUKOCYTE ESTERASE URINE 2+ (NEGATIVE); NITRITE URINE NEGATIVE (NEGATIVE); OCCULT BLOOD URINE NEGATIVE (NEGATIVE); PH URINE 5.5 (4.5-8.0); PROTEIN URINE 1+ (NEGATIVE); SPECIFIC GRAVITY URINE 1.018 (1.005-1.030); UROBILINOGEN URINE 0.2 E.U./dL (0.2-1.0)
[2024-09-17 20:49] LABS: WBC URINE 15-25 /hpf (0-2)
[2024-09-17 20:50] LABS: BACTERIA URINE 2+; RBC URINE 0-2 /hpf (0-2); SQUAMOUS EPITHELIAL CELL URINE 1+ /lpf (RARE/1+)
== END 2024-09-17 19:27 | disposition home or self-care (01) ==
LOC: ER 13:05
DX: B34.9 Viral infection, unspecified (principal); R05.9 Cough, unspecified; E78.00 Pure hypercholesterolemia, unspecified; I10 Essential (primary) hypertension; E11.9 Type 2 diabetes mellitus without complications; Z79.899 Other long term (current) drug therapy; Z79.84 Long term (current) use of oral hypoglycemic drugs; Z20.822 Contact with and (suspected) exposure to COVID-19
CPT/HCPCS: 36415; 80053; 81003; 85025; 87070; 87077; 87186; 87426; 87430; 87804; 99283